=== PATIENT | female | born 1935 | race Caucasian/White ===

== ENCOUNTER → 2017-08-18 | Outpatient (CLI) | payer OTHER, BC ==
[~2017-08-18] MED LIST: ECO81 PO; ESTROGEN; SIMBRINZA8 ML OP; XALATAN2.5 ML OU
[2017-08-18 13:26] LABS: ALKALINE PHOSPHATASE 81 U/L (46-116); ALT/SGPT 26 U/L (14-59); AST/SGOT 28 U/L (15-37); BILIRUBIN TOTAL 0.92 mg/dL (0.20-1.00); CALCIUM 9.1 mg/dL (8.5-10.1); CARBON DIOXIDE 32.8 mmol/L (21-32); CHLORIDE SERUM 104 mmol/L (98-107); CREATININE SERUM 0.8 mg/dL (0.6-1.0); GLUCOSE SERUM 108 mg/dL (74-106); POTASSIUM SERUM 3.8 mmol/L (3.5-5.1); SODIUM SERUM 141 mmol/L (136-145)
[2017-08-18 13:28] LABS: BASOPHIL % 0.6 % (0-2); PLATELET COUNT 224 x10^3mcL (130-400); RED CELL DISTRIBUTION WIDTH 13.5 % (11.5-14.5)
[2017-08-18 13:35] LABS: TOTAL PROTEIN, SERUM 8.5 g/dL (6.4-8.2)
[2017-08-18 14:03] LABS: FREE T4 1.01 ng/dL (0.76-1.46); FREE THYROXINE INDEX 3.2 ug/dL (1.4-4.5); T4(THYROXINE) 9.2 ug/dL (4.7-13.3)
[2017-08-18 15:51] LABS: T3 TOTAL 0.95 ng/mL
== END | disposition home or self-care (01) ==
LOC: LB 12:21
DX: Z01.818 Encounter for other preprocedural examination (principal); T85.42XA Displacement of breast prosthesis and implant, initial encounter; T85.848A Pain due to other internal prosthetic devices, implants and grafts, initial encounter; R32 Unspecified urinary incontinence
CPT/HCPCS: 82670; 84439

== ENCOUNTER 2017-10-20 10:26 | Emergency (ER) | payer OTHER, BC ==
[~2017-10-20] VITALS: Ht 162.6 cm; Wt 63.1 kg
[2017-10-20 16:47] VITALS: BP 114/60
== END 2017-10-20 14:00 | disposition home or self-care (01) ==
LOC: ED 10:26
DX: T78.40XA Allergy, unspecified, initial encounter (principal); X58.XXXA Exposure to other specified factors, initial encounter
CPT/HCPCS: J3490; J7040

== ENCOUNTER 2017-10-24 10:55 | Emergency (ER) | payer OTHER, BC ==
[2017-10-24 10:56] VITALS: BP 140/82
== END 2017-10-24 11:44 | disposition left against medical advice (07) ==
LOC: ED 10:55
DX: Z53.21 Procedure and treatment not carried out due to patient leaving prior to being seen by health care provider (principal)

== ENCOUNTER 2018-06-27 14:07 | Emergency (ER) | payer OTHER, BC ==
[~2018-06-27] VITALS: Ht 165.1 cm; Wt 63.5 kg
[2018-06-27 14:12] VITALS: Ht 165.1 cm; Wt 63.5 kg
[2018-06-27 15:41] VITALS: BP 124/64
== END 2018-06-27 15:41 | disposition home or self-care (01) ==
LOC: ED 14:07
DX: T20.26XA Burn of second degree of forehead and cheek, initial encounter (principal); X15.8XXA Contact with other hot household appliances, initial encounter; Y93.89 Activity, other specified; Y92.89 Other specified places as the place of occurrence of the external cause; Y99.8 Other external cause status
CPT/HCPCS: 90715

== ENCOUNTER → 2018-07-13 | Outpatient (CLI) | payer OTHER, BC ==
[2018-07-13 10:21] LABS: CALCIUM 8.9 mg/dL (8.5-10.1); CARBON DIOXIDE 26.7 mmol/L (21-32); CHLORIDE SERUM 107 mmol/L (98-107); CREATININE SERUM 0.7 mg/dL (0.6-1.0); GLUCOSE SERUM 107 mg/dL (74-106); POTASSIUM SERUM 3.9 mmol/L (3.5-5.1); SODIUM SERUM 141 mmol/L (136-145)
== END | disposition home or self-care (01) ==
LOC: CANPRECLI → LB 16:00 → CT 07-19 09:00
PROVIDERS: Internal Medicine Cardiovascular Disease
DX: R06.02 Shortness of breath (principal); M79.89 Other specified soft tissue disorders

== ENCOUNTER → 2018-07-26 | Outpatient (CLI) | payer OTHER, BC | END | disposition home or self-care (01) | LOC: CT 09:00 → US 10:30 → CT 11:00 | PROC: B54DZZZ Ultrasonography of Bilateral Lower Extremity Veins (ICD-10-PCS; principal; 2018-07-26) | PROC: BW241ZZ Computerized Tomography (CT Scan) of Chest and Abdomen using Low Osmolar Contrast (ICD-10-PCS; 2018-07-26) | DX: R07.9 Chest pain, unspecified (principal); M79.89 Other specified soft tissue disorders; Z86.718 Personal history of other venous thrombosis and embolism | CPT/HCPCS: Q9967 ==

== ENCOUNTER → 2018-11-15 | Outpatient (CLI) | payer OTHER, BC | END | disposition home or self-care (01) | LOC: RD 14:03 | DX: M25.552 Pain in left hip (principal); W19.XXXA Unspecified fall, initial encounter ==

== ENCOUNTER → 2018-12-19 | Outpatient (CLI) | payer OTHER, BC | END | disposition home or self-care (01) | LOC: US 11:57 | PROC: BH4CZZZ Ultrasonography of Head and Neck (ICD-10-PCS; principal; 2018-12-19) | DX: R22.1 Localized swelling, mass and lump, neck (principal); Z85.3 Personal history of malignant neoplasm of breast ==

== ENCOUNTER 2019-06-15 20:27 | Inpatient (IN) | payer OTHER, BC ==
[~2019-06-15] VITALS: Ht 165.1 cm; Wt 61.2 kg
[2019-06-15 20:36] VITALS: Ht 165.1 cm; Wt 61.2 kg
--- NOTE | 2019-06-15 20:44 | NUR ---
PT BIBA FOR C/O INTERMITTENT " CHEST PRESSURE" THAT HAS BEEN ONGOING FOR TWO MONTHS. PT REPORTS FEELING DIZZY, NAUSEATED, AND HAVING SOB. 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 PT STS " I FEEL BETTER, BUT STILL HAVE SOME PRESSURE". PT WAS ABLE TO AMBULATE WITH STEADY GAIT FROM [facility] TO [facility] WITH NO INCIDENCE. PT IS ABLE TO ANSWER ALL QUESTIONS APPROPRIATELY. PT IS A/O X4. PT RESPS ARE E/U. PT IS PLACED ON ALL MONITORS. AWAITING MSE
--- NOTE | 2019-06-15 20:55 | NUR ---
MSE COMPLETED BY DR RAYMUNDO
--- NOTE | 2019-06-15 21:05 | NUR ---
PORTABLE CHEST XRAY IN PROGRESS
[2019-06-15 21:08] LABS: BASOPHIL % 0.5 % (0-2); PLATELET COUNT 237 x10^3mcL (130-400); RED CELL DISTRIBUTION WIDTH 12.9 % (11.5-14.5)
[2019-06-15 21:17] LABS: CALCIUM 8.9 mg/dL (8.5-10.1); CARBON DIOXIDE 28.3 mmol/L (21-32); CHLORIDE SERUM 99 mmol/L (98-107); CREATININE SERUM 0.6 mg/dL (0.6-1.0); GLUCOSE SERUM 112 mg/dL (74-106); POTASSIUM SERUM 3.7 mmol/L (3.5-5.1); SODIUM SERUM 140 mmol/L (136-145)
[2019-06-15 21:21] LABS: ALBUMIN 3.5 g/dL (3.4-5.0); ALKALINE PHOSPHATASE 93 U/L (46-116); ALT/SGPT 25 U/L (14-59); AST/SGOT 16 U/L (15-37); BILIRUBIN TOTAL 0.3 mg/dL (0.20-1.00); LIPASE 158 IU/L (73-393)
--- NOTE | 2019-06-15 22:12 | NUR ---
LAB WORK AT BEDSIDE FOR BLOOD DRAW
--- NOTE | 2019-06-15 22:19 | NUR ---
GAVE PT REPORT TO MILDRED CHAVIRA ON TELE FLOOR TO ASSUME FURTHER CARE OF PT. PT WILL BE GOING TO ROOM 250B.
[2019-06-15 22:30] LABS: CHOLESTEROL/HDL RATIO 4.6; MAGNESIUM 1.9 mg/dL (1.8-2.4)
--- NOTE | 2019-06-15 22:35 | NUR ---
PT WHEELED UPSTAIRS BY PRESTON CEBALLOS AND PAN CHAVIRA. NO INCIDENCE NOTED
[2019-06-15 22:39] LABS: T3 TOTAL 1.12 ng/mL
[2019-06-15 22:41] LABS: FREE T4 1.16 ng/dL (0.76-1.46); FREE THYROXINE INDEX 2.8 ug/dL (1.4-4.5); T4(THYROXINE) 8.1 ug/dL (4.7-13.3)
[2019-06-15 22:54] VITALS: BP 199/93
--- NOTE | 2019-06-15 23:07 | NUR ---
RECEIVED PT FROM ER, PT ADMIT FOR CHEST PAIN, PT IS A/O X4, VERBAL RESPONSIVE ABLE TO TELL WHAT SHE NEEDS. LUNG SOUND CLEAR BILATERAL, NO COUGH, NO SOB, PT IS ON TELE 6, NSR, DENY ANY CHEST PAIN OR DISCOMFORT, BOWEL SOUND PRESENT ALL 4 QUADRANTS, NO DISTENTION, NO TENDER. PEDAL PULSE PRESENT BOTH FEET, NO EDEMA, IV AT LEFT AC, NO LEAKING, NO INFILTRATION. ALL ADLS ASSIST, ALL NEED MET, CALL LIGHT IN REACH, WILL CONTINUE TO MONITOR.
--- NOTE | 2019-06-15 23:09 | NUR ---
INFORM THE PT B/P TO DR. ALEXANDRE. MADE AWARE, AND ENDORSE TO PRIMARY NURSE TO FOLLOW UP.
--- NOTE | 2019-06-15 23:38 | NUR ---
PATIENT GIVEN HYDRALAZINE IVP PER EMAR FOR HIGH BP OF 199/93. TELE STRIP PRINTED BEFORE ADMINISTRATION, NSR.
[2019-06-16] VITALS (7 sets, daily range): BP systolic 92–141; BP diastolic 41–67
--- NOTE | 2019-06-16 00:10 | NUR ---
PATIENTS BP IMPROVED TP 116/53 MAP 74. NEW TELE STRIP PRINTED AT THIS TIME NSR 69.
--- NOTE | 2019-06-16 00:46 | NUR ---
PATIENT IS AWAKE AND REQUESTING A SNACK. PATIENT GIVEN JELLO. NO DISTRESS NOTED. PATIENT CONTINUES TO BE CALM AND COOPERATIVE. SITTER AT BEDSIDE. CALL LIGHT AND BEDSIDE TABLE WITHIN REACH.
--- NOTE | 2019-06-16 06:31 | NUR ---
PATIENT HAS SLEPT WELL THROUGH THE NIGHT. PATIENTS EYES ARE CLOSED. BREATHS EVEN AND REGULAR. IV IS SALINE LOCKED AND PATENT. NO FURTHER SIGNIFICANT EVENTS. WILL ENDORSE CARE TO DAYSHIFT NURSE.
[2019-06-16 07:10] LABS: CALCIUM 8.9 mg/dL (8.5-10.1); CARBON DIOXIDE 25.9 mmol/L (21-32); CHLORIDE SERUM 110 mmol/L (98-107); CREATININE SERUM 0.7 mg/dL (0.6-1.0); GLUCOSE SERUM 87 mg/dL (74-106); MAGNESIUM 2.1 mg/dL (1.8-2.4); PHOSPHOROUS 4.1 mg/dL (2.5-4.9); POTASSIUM SERUM 3.6 mmol/L (3.5-5.1); SODIUM SERUM 146 mmol/L (136-145)
--- NOTE | 2019-06-16 07:21 | NUR ---
RECEIVED PT RESTING IN BED. NO ACUTE DISTRESS. AAOX4. RESP EVEN AND UNLABORED ON RA. DENIES CP OR PRESSURE AT THIS TIME. NSR ON TELE #6. IV TO LAC, NO REDNESS OR SWELLING NOTED. BED IN LOW POSITION, CALL LIGHT WITHIN REACH. WILL CONTINUE TO MONITOR.
[2019-06-16 08:29] LABS: BASOPHIL % 0.6 % (0-2); PLATELET COUNT 239 x10^3mcL (130-400); RED CELL DISTRIBUTION WIDTH 13.4 % (11.5-14.5)
--- NOTE | 2019-06-16 10:38 | NUR ---
PT RESTING IN BED WITH EYES CLOSED. SLEEPING BUT EASILY AROUSABLE. BREATHING EVEN AND UNLABORED ON RA. NO PAIN NOTED. IV TO LAC, NO REDNESS OR SWELLING. CALL LIGHT WITHIN REACH. WILL CONTINUE TO MONITOR.
[2019-06-16 11:54] LABS: microscopic required? NO
[2019-06-16 12:09] LABS: urine erythrocyte NEGATIVE (NEGATIVE)
[2019-06-16 12:29] LABS: AMPHETAMINE QUAL UR NONE DETECTED (See below)
--- NOTE | 2019-06-16 18:44 | NUR ---
PT SITTING UP ON THE SIDE OF THE BED. NO ACUTE DISTRESS. AAOX4. RESP EVEN AND UNLABORED ON RA. DENIES CP OR PRESSURE. C/O MILD HIP PAIN. IV TO LAC, NO REDNESS OR SWELLING NOTED. AMBULATORY. BED IN LOW POSITION, CALL LIGHT WITHIN REACH. WILL ENDORSE TO ONCOMING SHIFT.
--- NOTE | 2019-06-16 19:15 | NUR ---
PT ASLEEP COMFORTABLY IN BED. NO ACUTE DISTRESS NOTED. EVEN AND UNLABORED RESPIRATIONS ON RA. ON TELE# 6 READING SR 60. IVL INTACT. BED IN LOWEST POSITION. SIDE RAILS UPX2 CALL LIGHT WITHIN REACH. WILL CONTINUE TO MONITOR.
--- NOTE | 2019-06-16 21:00 | NUR ---
PT REFUSED IV INSERTION AND ORDERED EYE DROPS. MADE AWARE. WILL CONTINUE TO MONITOR.
--- NOTE | 2019-06-16 22:10 | NUR ---
DR. SANCHEZ AT BEDSIDE. STATES NO IV NEEDED AT THIS TIME. D/W PT ABOUT EYE MEDICATION. PT IN NO ACUTE DISTRESS. BED IN LOWEST POSITION. SIDE RAILS UPX2. CALL LIGHT WITHIN REACH. WILL CONTINUE TO MONITOR.
--- NOTE | 2019-06-16 23:57 | NUR ---
PT C/O HEADACHE. MEDICATED PER EMAR. SALINES CRACKERS AND WATER PROVIDED WELL. PT IN NO ACUTE DISTRESS. ON TELE # 6 READING SR 60. BED IN LOWEST POSITION. SIDE RAILS UPX2. CALL LIGHT WITHIN REACH. WILL CONTINUE TO MONITOR.
[2019-06-17 05:14] VITALS: BP 131/53
[2019-06-17 06:22] LABS: BASOPHIL % 0.8 % (0-2); PLATELET COUNT 215 x10^3mcL (130-400); RED CELL DISTRIBUTION WIDTH 13.3 % (11.5-14.5)
--- NOTE | 2019-06-17 06:29 | NUR ---
PT SLEPT IN INTERVALS THROUGHOUT THE SHIFT. C/O HEADACHE AND CONSTIPATION MEDICATED PER EMAR. ALL NEEDS TENDED TO AND MET. SCHEDULED MEDICATIONS GIVEN, PT REFUSED EYE DROPS. NO IV SITE AT THIS TIME, IS AWARE. ON TELE#6 READING SR/SB 50S-60S BPM THROUGHOUT THE SHIFT. BED IN LOWEST POSITION. SIDE RAILS UPX2. CALL LIGHT WITHIN REACH. WILL ENDORSE TO ONCOMING SHIFT.
[2019-06-17 06:51] LABS: CALCIUM 8.5 mg/dL (8.5-10.1); CARBON DIOXIDE 25.1 mmol/L (21-32); CHLORIDE SERUM 106 mmol/L (98-107); CREATININE SERUM 0.8 mg/dL (0.6-1.0); GLUCOSE SERUM 94 mg/dL (74-106); PHOSPHOROUS 4.4 mg/dL (2.5-4.9); POTASSIUM SERUM 3.9 mmol/L (3.5-5.1); SODIUM SERUM 140 mmol/L (136-145)
--- NOTE | 2019-06-17 07:38 | NUR ---
RECEIVED PT IN NO ACUTE DISTRESS. SLEEPING BUT EASILY AROUSABLE. BREATHING EVEN AND UNLABORED ON RA. NO PAIN NOTED AT THIS TIME. SB ON TELE MONITOR, HR 55. NO IV ACCESS AT THIS TIME, PT REFUSED. MD AWARE. BED IN LOW POSITION, CALL LIGHT WITHIN REACH. WILL CONTINUE TO MONITOR.
[2019-06-17 08:37] VITALS: BP 116/83
[2019-06-17 08:52] VITALS: BP 118/60
[2019-06-17] MEDS ORDERED: ZESTRIL5 MG PO (10:43)
[2019-06-17] MEDS ORDERED: LIPI10 PO (10:43)
[2019-06-17] MEDS ORDERED: ASPIR 8181 MG PO (10:43)
[2019-06-17 11:21] VITALS: BP 118/60
--- NOTE | 2019-06-17 12:05 | NUR ---
PT AWAKE, ALERT, AND ORIENTED. VSS. AMBULATORY. RX GIVEN. DISCHARGE EDUCATION PROVIDED, PT VERBALIZED UNDERSTANDING. INSTRUCTED PT TO FOLLOW UP WITH PCP AND OPTHAMOLOGIST. TELE REMOVED. BELONGINGS WITH PT. PT WAITING FOR HER RIDE AT THIS TIME. WILL CONTINUE TO MONITOR.
--- NOTE | 2019-06-17 12:11 | NUR ---
PT DISCHARGED TO HOME IN NO ACUTE DISTRESS. AWAKE, ALERT, AND ORIENTED. VSS. AMBULATORY. [employer] [employer] ACCOMPANIED PT LOBBY.
== END 2019-06-17 12:11 | disposition home or self-care (01) | DRG 305 ==
LOC: ED 20:27 → DU 21:52
PROVIDERS: Emergency Medicine; ADMIT Internal Medicine
DX: I16.0 Hypertensive urgency (principal); I10 Essential (primary) hypertension; F41.1 Generalized anxiety disorder; F43.0 Acute stress reaction; H40.9 Unspecified glaucoma; J45.909 Unspecified asthma, uncomplicated; M19.90 Unspecified osteoarthritis, unspecified site; Z86.711 Personal history of pulmonary embolism; Z85.3 Personal history of malignant neoplasm of breast; Z90.13 Acquired absence of bilateral breasts and nipples; Z96.642 Presence of left artificial hip joint; Z68.22 Body mass index [BMI] 22.0-22.9, adult; Z79.82 Long term (current) use of aspirin
CPT/HCPCS: 83880; 84439; 85378; 94150; G0378; J0360; J2405; J7030; J7620; Q0092